=== PATIENT | female | born 1985 | race Caucasian/White ===

== ENCOUNTER 2017-04-18 22:15 | Emergency (ER) | payer MEDICAID | END 2017-04-18 23:50 | disposition home or self-care (01) | LOC: D.ER 22:15 | DX: J11.1 Influenza due to unidentified influenza virus with other respiratory manifestations (principal); R11.2 Nausea with vomiting, unspecified ==

== ENCOUNTER 2017-12-27 20:09 | Emergency (ER) | payer MEDICAID ==
[~2017-12-27] VITALS: Ht 157.5 cm; Wt 127.3 kg
[2017-12-27 20:13] VITALS: Ht 157.5 cm; Wt 127.3 kg
[2017-12-27] MEDS ORDERED: [UNRECOGNIZED DRUG - OTHER] (20:14)
[2017-12-27 20:44] LABS: BASOPHILS 0.2 % (0-2); EOSINOPHILS 0.4 % (0-7); HEMATOCRIT 38.4 % (36.0-48.0); HEMOGLOBIN 12.6 g/dL (12-16); IMMATURE GRANULOCYTES 0.2 % (0-5); LYMPHOCYTES 17.1 % (15-50); MCH 26.3 pg (26.0-34.0); MCHC 32.8 g/dL (31.0-37.0); MCV 80.2 fL (80.0-100.0); MEAN PLATELET VOLUME 10.6 fL (7.4-10.4); MONOCYTES 6.8 % (2-11); NEUTROPHILS 75.3 % (40-80); PLATELET COUNT 255 10x3/uL (130-400); RBC 4.79 10x6/uL (4.00-5.40); RDW 14.7 % (11.5-14.5); WBC 12.3 10x3/uL (4.8-10.8)
[2017-12-27 21:02] LABS: ALBUMIN 3.7 g/dL (3.4-5.0); ALKALINE PHOSPHATASE 94 U/L (46-116); ALT (SGPT) 27 U/L (10-68); BILIRUBIN - TOTAL 0.22 mg/dL (0.2-1.3); CALC OSMOLALITY 286 mosm/kg (275-300); CALCIUM 8.6 mg/dL (8.5-10.1); CARBON DIOXIDE 26.8 mmol/L (21.0-32.0); CHLORIDE - SERUM 106 mmol/L (98-107); GLUCOSE 97 mg/dL (74-106); POTASSIUM - SERUM 3.8 mmol/L (3.5-5.1); PROTEIN - SERUM 8.1 g/dL (6.4-8.2); SODIUM 142 mmol/L (136-145); UREA NITROGEN 24 mg/dL (7-18); eGFR NON AFRICAN AMERICAN 68 mL/min (90-120)
[2017-12-27 21:13] LABS: CKMB 0.6 U/L (0.0-3.6); CREATINE KINASE 142 UL (21-215)
[2017-12-27 21:14] LABS: TROPONIN-I < 0.017 ng/mL (0.000-0.060)
[2017-12-27 21:19] LABS: HCG SERUM NEGATIVE (NEGATIVE)
[2017-12-27 23:20] VITALS: BP 127/73
== END 2017-12-27 23:21 | disposition home or self-care (01) ==
LOC: D.ER 20:09
PROVIDERS: Family Medicine
DX: I47.1 Supraventricular tachycardia (principal); R51 Headache; M54.2 Cervicalgia; I10 Essential (primary) hypertension

== ENCOUNTER 2018-05-22 23:24 | Emergency (ER) | payer MEDICAID ==
[~2018-05-22] VITALS: Ht 157.5 cm; Wt 127.0 kg
[~2018-05-22 23:24] MED LIST: [UNRECOGNIZED DRUG - OTHER]
[2018-05-22 23:32] VITALS: Ht 157.5 cm; Wt 127.0 kg
[2018-05-22 23:50] LABS: BASOPHILS 0.2 % (0-2); EOSINOPHILS 0.8 % (0-7); HEMATOCRIT 38.4 % (36.0-48.0); HEMOGLOBIN 12.3 g/dL (12-16); IMMATURE GRANULOCYTES 0.1 % (0-5); LYMPHOCYTES 26.9 % (15-50); MCH 26.2 pg (26.0-34.0); MCV 81.9 fL (80.0-100.0); MEAN PLATELET VOLUME 10.4 fL (7.4-10.4); MONOCYTES 7.1 % (2-11); NEUTROPHILS 64.9 % (40-80); PLATELET COUNT 279 10x3/uL (130-400); RBC 4.69 10x6/uL (4.00-5.40); RDW 14.4 % (11.5-14.5); WBC 10.8 10x3/uL (4.8-10.8)
[2018-05-22 23:59] LABS: INR 1.05 (0.85-1.17); PROTIME 13.2 SECONDS (11.6-15.0)
[2018-05-23 00:05] LABS: ALBUMIN 3.5 g/dL (3.4-5.0); ALKALINE PHOSPHATASE 88 U/L (46-116); ALT (SGPT) 29 U/L (10-68); BILIRUBIN - TOTAL 0.14 mg/dL (0.2-1.3); CALC OSMOLALITY 280 mosm/kg (275-300); CALCIUM 8.2 mg/dL (8.5-10.1); CARBON DIOXIDE 25.4 mmol/L (21.0-32.0); CHLORIDE - SERUM 105 mmol/L (98-107); CREATININE - SERUM 0.9 mg/dL (0.6-1.3); GLUCOSE 83 mg/dL (74-106); POTASSIUM - SERUM 3.6 mmol/L (3.5-5.1); PROTEIN - SERUM 7.7 g/dL (6.4-8.2); SODIUM 139 mmol/L (136-145); UREA NITROGEN 23 mg/dL (7-18); eGFR NON AFRICAN AMERICAN 76 mL/min (90-120)
[2018-05-23 00:11] LABS: APTT 30.1 SECONDS (22.8-39.4)
[2018-05-23 00:18] LABS: CKMB 0.4 U/L (0.0-3.6); CREATINE KINASE 74 UL (21-215); MAGNESIUM - SERUM 1.8 mg/dL (1.8-2.4); TROPONIN-I < 0.017 ng/mL (0.000-0.060)
[2018-05-23 03:11] VITALS: BP 100/89
== END 2018-05-23 03:13 | disposition home or self-care (01) ==
LOC: D.ER 23:24
PROVIDERS: Emergency Medicine
DX: R07.9 Chest pain, unspecified (principal)

== ENCOUNTER → 2018-07-15 10:02 | Outpatient (CLI) | payer BC, MEDICAID ==
[2018-05-22 23:32] VITALS: BMI 51.3
--- NOTE | 2018-07-18 10:07 | EC ---
PATIENT:IAN SARGENT DATE OF SERVICE: 07/15/18 SEX: F MEDICAL RECORD: [id number] DATE OF : [birth year] LOCATION:D[facility] AGE OF PATIENT: 33 ADMISSION DATE: 07/15/18 REFERRING PHYSICIAN: INTERPRETING PHYSICIAN: SAMMY MAHER MD ECHOCARDIOGRAM REPORT ECHO CHARGES 4 ECHO COMPLETE Date: 07/15/18 CLINICAL DIAGNOSIS: HEART MURMUR ECHOCARDIOGRAPHIC MEASUREMENTS (adult normal given) AC root (d.<3.7cm) 2.6 cm LV Septum d (<1.2 cm> 1.3 cm Valve Excursion 1.5 cm LV Septum (systole) 1.4 cm Left Atria (s.<4.0cm> 4.1 cm LVPW d(<1.2cm) 1.7 cm RV (d.<2.3cm) 3.4 cm LVPW (sytole) 1.8 cm LV diastole(<5.6CM) 4.1 cm MV E-F(>70mm/sec) cm LV systole 3.1 cm LVOT Diameter 1.6 cm MV exc.(>10mm) 1.7 cm Est.ejection fraction (50-75%) % DOPPLER: LVIT cm/sec A 53.0 cm/sec E 79.0 cm/sec LA cm/sec RVSP 17 mmHg LVOT 120 cm/sec AOP1/2T m/s Asc. Ao 139 cm/sec RVOT 91 cm/sec RA cm/sec PA 119 cm/sec AV Gradient Peak 7.76 mmHg AV Mean 4.04 mmHg AV Area 2.1 cm MV Gradient Peak 5.75 mmHg MV Mean 1.54 mmHg MV Area cm COMMENTS: Green Feed Attendant: 2 COLUMBA MORENO Tractor Trailer Truck Driver: 3 Dr. Hernandez TAPE# PACS Pericardial Effusion N DATE OF SERVICE: Adequate 2D, color flow, spectral Doppler, and M-Mode Borderline LVH. LV internal dimensions are normal. Wall motion is normal. EF is greater than or equal to 55%. Aortic valve is tricuspid. No evidence of stenosis by Doppler interrogation. Left atrium is in the upper limits of normal at 4.1 cm. Mitral valve shows no prolapse. Physiologic MR. Right sided chambers are normal. Physiologic TR. ECHOCARDIOGRAM REPORT [id number] IAN SARGENT TRANSINT:[id number] Voice Confirmation ID: [id number] DOCUMENT ID: [id number] SAMMY MAHER MD at 1007 CC: [id number] DICTATION DATE: 07/15/181818 POLISH COMPOUNDER: 07/16/18 0127 DEP CLI 07/15/18 [place] [id number] [place] [id number]
== END | disposition home or self-care (01) ==
LOC: D.HCCARDIO 10:02
PROVIDERS: ATTEND Internal Medicine Interventional Cardiology
DX: R01.1 Cardiac murmur, unspecified (principal)